=== PATIENT | female | born 1985 | race African-American/Black ===

== ENCOUNTER 2016-12-15 11:31 | Emergency (ER) | payer SELFPAY ==
[~2016-12-15] VITALS: Ht 170.2 cm; Wt 64.0 kg
[2016-12-15 11:37] VITALS: BP 114/63; PULSE 72; RESP 15; TEMP 98.2; O2SAT 99
[2016-12-15 12:05] LABS: AUTOMATED NEUTROPHIL # 4.5 TH/MM3 (1.8-7.7); BASOPHIL % 0.6 % (0.0-2.0); EOSINOPHIL % 0.4 % (0.0-4.0); HEMO FLAGS DIFF FINAL; LYMPH % 28.5 % (9.0-44.0); MEAN CELL VOLUME 92.9 FL (80.0-100.0); MEAN CORPUSCULAR HEMOGLOBIN 31.2 PG (27.0-34.0); MEAN CORPUSCULAR HGB CONC 33.6 % (32.0-36.0); MONO % 7.5 % (0.0-8.0); PLATELET COUNT 256 TH/MM3 (150-450); RED CELL DISTRIBUTION WIDTH 13.4 % (11.6-17.2); WHITE BLOOD COUNT 7.1 TH/MM3 (4.0-11.0)
[2016-12-15 12:30] LABS: BETA HCG QUANT LESS THAN 1 MIU/ML (0-5)
--- NOTE | 2016-12-15 13:29 | PD ---
HPI Chief Complaint: Related Problem Time Seen by Provider: 13:22 Travel History International Travel<30 days: No Contact w/Intl Traveler<30days: No Traveled to known affect area: No History of Present Illness HPI 31-year-old female came to the emergency room with history of vaginal bleeding that as per her happened 1 month ago at which point she thought she had passed products of conception. As per patient she is but the weeks of gestation the patient is really confused about at this point. She said that she was seen in [facility] by OB were an ultrasound was done at the end of August and was told that she is . She hasn't followed up with them recently. There was blood test done today in triage including beta hCG Quant and it was less than 1. Vital signs are stable. [facility] Past Medical History Narrative Medical List of her past medical, surgical, social and family history is reviewed from the nursing note. ?: LMP: AUGUST 2016 Social History Tobacco Use: Yes Allergies-Medications (Allergen,Severity, Reaction): Coded Allergies: No Known Allergies (Unverified , 12/15/16) Comments No known drug allergies. Narrative Medication Awaiting for the nurse to put a med reconciliation. Review of Systems Except as stated in HPI: all other systems reviewed are Neg Physical Exam Narrative GENERAL: Awake, alert, no obvious distress. SKIN: Focused skin assessment warm/dry. HEAD: Atraumatic. Normocephalic. EYES: Pupils equal and round. No scleral icterus. No injection or drainage. ENT: No nasal bleeding or discharge. Mucous membranes pink and moist. NECK: Trachea midline. No JVD. CARDIOVASCULAR: Regular rate and rhythm. No murmur appreciated. RESPIRATORY: No accessory muscle use. Clear to auscultation. Breath sounds equal bilaterally. GASTROINTESTINAL: Abdomen soft, non-tender, nondistended. Hepatic and splenic margins not palpable. MUSCULOSKELETAL: No obvious deformities. No clubbing. No cyanosis. No edema. NEUROLOGICAL: Awake and alert. No obvious cranial nerve deficits. Motor grossly within normal limits. Normal speech. PSYCHIATRIC: Appropriate mood and affect; insight and judgment normal. Data Data Last Documented VS Orders Orders Complete Blood Count With Diff (12/15/16 11:36) Beta Hcg (Quant/Titer) (12/15/16 11:36) Abo/Rh Blood Type (12/15/16 11:36) Ed Discharge Order (12/15/16 13:29) Labs Laboratory Tests Test 12/15/16 10:41 White Blood Count 7.1 TH/MM3 Red Blood Count 4.20 MIL/MM3 Hemoglobin 13.1 GM/DL Hematocrit 39.0 % Mean Corpuscular Volume 92.9 FL Mean Corpuscular Hemoglobin 31.2 PG Mean Corpuscular Hemoglobin Concent 33.6 % Red Cell Distribution Width 13.4 % Platelet Count 256 TH/MM3 Mean Platelet Volume 6.9 FL Neutrophils (%) (Auto) 63.0 % Lymphocytes (%) (Auto) 28.5 % Monocytes (%) (Auto) 7.5 % Eosinophils (%) (Auto) 0.4 % Basophils (%) (Auto) 0.6 % Neutrophils # (Auto) 4.5 TH/MM3 Lymphocytes # (Auto) 2.0 TH/MM3 Monocytes # (Auto) 0.5 TH/MM3 Eosinophils # (Auto) 0.0 TH/MM3 Basophils # (Auto) 0.0 TH/MM3 CBC Comment DIFF FINAL Differential Comment Human Chorionic Gonadotropin, Quant LESS THAN 1 MIU/ML MDM Medical Decision Making Medical Screen Exam Complete: Yes Emergency Medical Condition: Yes Medical Record Reviewed: Yes Differential Diagnosis Not Narrative Course 1:45 PM I told the patient that she is not . She needs to go back to her OB or RETIREMENT MANAGER to discuss this further. She was very confused about this whole test. She'll be given a copy of the test results of that she can take it with her to the OB. Procedures EKG Prior to Arrival: No Diagnosis Primary Impression: Vaginal bleeding Referrals: Primary Care Physician Additional Instructions: Please follow-up with your OB or RETIREMENT MANAGER. Your test result was negative today. Other blood test results were normal as well. Your blood type is A+. Disposition: 01 DISCHARGE HOME Condition: Stable Roverto Bright MD Dec 15, 2016 13:29
== END 2016-12-15 13:44 | disposition home or self-care (01) ==
LOC: NEPD 11:31
DX: N93.9 Abnormal uterine and vaginal bleeding, unspecified (principal)
CPT/HCPCS: 84702; 85025; 86900; 86901; 99283